=== PATIENT | male | born 1970 | race Caucasian/White ===

== ENCOUNTER 2022-03-02 07:39 | Outpatient (CLI) | payer OTHER | END 2022-03-02 07:40 | disposition home or self-care (01) | LOC: TBSIIMAG 07:39 | PROVIDERS: ATTEND Neurological Surgery | DX: M51.16 Intervertebral disc disorders with radiculopathy, lumbar region (principal); M47.26 Other spondylosis with radiculopathy, lumbar region; M48.061 Spinal stenosis, lumbar region without neurogenic claudication | CPT/HCPCS: 72148 ==